=== PATIENT | female | born 1990 | race Caucasian/White ===

== ENCOUNTER 2018-08-07 20:40 | Emergency (ER) | payer OTHER ==
[~2018-08-07] VITALS: Ht 157.5 cm; Wt 48.7 kg
[~2018-08-07 20:40] MED LIST: PREN1TAB12 PO
[2018-08-07 22:17] VITALS: Ht 157.5 cm; Wt 48.7 kg
[2018-08-08] MEDS ORDERED: IBUPROFEN 200 MG TAB PO ONE
[2018-08-08] MEDS ORDERED: CYCL10TA7 PO (02:14)
[2018-08-08] MEDS ORDERED: IBUP-1561 PO (02:14)
[2018-08-08 02:32] VITALS: BP 110/57; PULSE 72; RESP 18
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
== END 2018-08-08 02:33 | disposition home or self-care (01) ==
LOC: FTE 20:40
DX: S20.219A Contusion of unspecified front wall of thorax, initial encounter (principal); V49.49XA Driver injured in collision with other motor vehicles in traffic accident, initial encounter
CPT/HCPCS: 71045; Z7502; Z7610

== ENCOUNTER 2018-09-22 20:00 | Emergency (ER) | payer OTHER ==
[~2018-09-22] VITALS: Ht 157.5 cm; Wt 48.6 kg
[~2018-09-22 20:00] MED LIST changes: +CYCL10TA7 PO; +IBUP-1561 PO
[2018-09-22 20:10] VITALS: Ht 157.5 cm; Wt 48.6 kg
[2018-09-22] MEDS ORDERED: ACETAMINOPHEN 500 MG TAB PO STA (21:36)
[2018-09-22] MEDS ORDERED: IBUP-1542 PO (21:37)
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
[2018-09-22 23:00] VITALS: BP 120/78; PULSE 79; RESP 16
== END 2018-09-22 23:00 | disposition home or self-care (01) ==
LOC: FTE 20:00
DX: S01.01XA Laceration without foreign body of scalp, initial encounter (principal); R40.2412 Glasgow coma scale score 13-15, at arrival to emergency department; W01.198A Fall on same level from slipping, tripping and stumbling with subsequent striking against other object, initial encounter; Y92.9 Unspecified place or not applicable
CPT/HCPCS: 12002; Z7502; Z7610

== ENCOUNTER 2018-09-27 16:24 | Emergency (ER) | payer OTHER ==
[~2018-09-27] VITALS: Ht 157.5 cm; Wt 49.2 kg
[~2018-09-27 16:24] MED LIST changes: +IBUP-1542 PO
[2018-09-27 16:52] VITALS: BP 106/64; PULSE 85; RESP 17; Ht 157.5 cm; Wt 49.2 kg
--- NOTE | 2018-09-27 17:24 | ERD ---
ER Documentation Chief Complaint Chief Complaint REGINA REMOVAL AT BACK OF HEAD HPI 28-year-old female with no significant past medical history presents for staple removal from her scalp. She was here in the ED about 5 days ago for a scalp laceration that was repaired with regina. She denies any headache or dizz iness. No fevers noted. No other modifying factors noted. No treatment tried at home. ROS All systems reviewed and are negative except as per history of present illness. Medications Home Meds Active Scripts Ibuprofen* (Motrin*) 600 Mg Tab, 600 MG PO Q6, #30 TAB Prov:JENNIFER PALACIOS NP 09/22/18 Cyclobenzaprine Hcl* (Cyclobenzaprine Hcl*) 10 Mg Tablet, 10 MG PO TID, #15 TAB Prov:ABHISHEK CORDOVA PA-C 08/08/18 Ibuprofen* (Motrin*) 400 Mg Tab, 400 MG PO Q6, #30 TAB Prov:ABHISHEK CORDOVA PA-C 08/08/18 Reported Medications Vit/Fe Fumarate/Fa ( 1-1 Tablet) 1 Tab Tablet, 1 TAB PO DAILY 05/15/11 Allergies Allergies: Coded Allergies: No Known Allergy (Verified Allergy, Unknown, 05/21/07) PMhx/Soc Medical and Surgical Hx: pt denies Medical Hx, pt denies Surgical Hx History of Surgery: No Anesthesia Reaction: No Hx Neurological Disorder: No Hx Respiratory Disorders: No Hx Cardiac Disorders: No Hx Psychiatric Problems: No Hx Miscellaneous Medical Probl: No Hx Alcohol Use: No Hx Substance Use: No Hx Tobacco Use: No FmHx Family History: No coronary disease Physical Exam Vitals Vital Signs Date Temp Pulse Resp B/P (MAP) Pulse Ox O2 O2 Flow FiO2 Time Delivery Rate 09/27/18 98.7 85 17 106/64 98 16:52 (78) Physical Exam Const: No acute distress Head: There are regina noted over the left posterior scalp area, clean dry intact, no active bleeding Eyes: Normal Conjunctiva ENT: Normal External Ears, Nose and Mouth. Neck: Full range of motion. No meningismus. Resp: Clear to auscultation bilaterally Cardio: Regular rate and rhythm, no murmurs Skin: No petechiae or rashes Ext: No cyanosis, or edema Neur: Awake and alert Psych: Normal Mood and Affect Procedures/MDM Medical Decision Making: Patient presents for staple removal. The regina noted over the posterior left side of the scalp, clean dry intact. Patient appeared well on physical exam. ED course: Staple Removal by me: 3 regina removed with staple remover without incident. Wound shows no evidence of infection, foreign body, neurologic injury, vascular injury, open joint or tendon laceration. Patient to follow up PRN. Patient advised to follow up with PCP in 1-2 days. Patient advised to return to ED for new or worsening symptoms. Patient stable on discharge from the ED. Disclaimer: Inadvertent spelling and grammatical errors are likely due to EHR/dictation software use and do not reflect on the overall quality of patient care. Also, please note that the electronic time recorded on this note does not necessarily reflect the actual time of the patient encounter. Departure Diagnosis: Primary Impression: Encounter for removal of regina Condition: Fair Patient Instructions: Staple Removal, No Complication Referrals: [facility] YOU HAVE RECEIVED A MEDICAL SCREENING EXAM AND THE RESULTS INDICATE THAT YOU DO NOT HAVE A CONDITION THAT REQUIRES URGENT TREATMENT IN THE EMERGENCY DEPARTMENT. FURTHER EVALUATION AND TREATMENT OF YOUR CONDITION CAN WAIT UNTIL YOU ARE SEEN IN YOUR DOCTORS OFFICE WITHIN THE NEXT 1-2 DAYS. IT IS YOUR RESPONSIBILITY TO MAKE AN APPOINTMENT FOR FOLOW-UP CARE. IF YOU HAVE A PRIMARY DOCTOR --you should call your primary doctor and schedule an appointment IF YOU DO NOT HAVE A PRIMARY DOCTOR YOU CAN CALL OUR PHYSICIAN REFERRAL HOTLINE AT IF YOU CAN NOT AFFORD TO SEE A PHYSICIAN YOU CAN CHOSE FROM THE FOLLOWING [facility] [address] [facility]. [facility] [address] [facility] [address] [facility]. [facility] [address] [facility]. [facility] [address] [facility]. [facility]. [address] Additional Instructions: Call your primary care doctor TOMORROW for an appointment during the next 1-2 days.See the doctor sooner or return here if your condition worsens before your appointment time. RITA MOCK DO Sep 27, 2018 17:24
== END 2018-09-27 17:21 | disposition home or self-care (01) ==
LOC: E/R 16:24
DX: Z48.02 Encounter for removal of sutures (principal)
CPT/HCPCS: 99281

== ENCOUNTER 2018-11-21 09:47 | Emergency (ER) | payer OTHER ==
[~2018-11-21] VITALS: Ht 154.9 cm; Wt 57.0 kg
[~2018-11-21 09:47] MED LIST changes: +CEPH-443 PO
[2018-11-21 09:54] VITALS: BP 128/67; Ht 154.9 cm; Wt 57.0 kg
[2018-11-21] MEDS ORDERED: ACETAMINOPHEN 325 MG TAB PO STA (11:08)
[2018-11-21 12:19] VITALS: PULSE 77; RESP 18
== END 2018-11-21 12:19 | disposition home or self-care (01) ==
LOC: FTE 09:47
DX: N30.01 Acute cystitis with hematuria (principal)
CPT/HCPCS: 36415; 76830; 76856; 80048; 81001; 81025; 85025; Z7502; Z7610